=== PATIENT | female | born 1945 ===

== ENCOUNTER 2021-03-17 05:45 | Day surgery (SDC) | payer OTHER ==
[~2021-03-17 05:45] MED LIST: ARICEPT5 MG PO; ATACAND32 MG PO; CARAFATE1 GM PO; HUMALOG; TOPROL XL25 M1 PO
== END 2021-03-17 10:21 | disposition home or self-care (01) ==
LOC: CIR.AMB 05:45
PROVIDERS: ATTEND Orthopaedic Surgery Hand Surgery
DX: G56.02 Carpal tunnel syndrome, left upper limb (principal); Z20.822 Contact with and (suspected) exposure to COVID-19

== ENCOUNTER 2021-06-30 05:45 | Day surgery (SDC) | payer OTHER ==
[~2021-06-30 05:45] MED LIST changes: +ASA81 MG PO
== END 2021-06-30 10:05 | disposition home or self-care (01) ==
LOC: CIR.AMB 05:45
PROVIDERS: ATTEND Orthopaedic Surgery Hand Surgery
DX: G56.01 Carpal tunnel syndrome, right upper limb (principal); Z20.822 Contact with and (suspected) exposure to COVID-19